=== PATIENT | female | born 1960 | race Caucasian/White ===

== ENCOUNTER 2018-04-25 00:13 | Emergency (ER) | payer SELFPAY ==
[2018-04-25] MEDS ORDERED: PROVENTIL IH ONE (00:51)
--- NOTE | 2018-04-25 01:27 | XRay Report ---
FINAL REPORT PROCEDURE: XR CHEST ROUTINE 2V TECHNIQUE: PA and lateral chest radiographs were obtained. CPT 18257 HISTORY: Shortness of breath COMPARISON: No prior studies are available for comparison. FINDINGS: Heart: Normal. Mediastinum/Vessels: Normal. Lungs/Pleural space: Normal. Bony thorax: No acute osseous abnormality. Other: IMPRESSION: Normal examination.
[2018-04-25 02:13] LABS: BUN/Creatinine Ratio 11; Blood Urea Nitrogen 12 mg/dL (7-17); Calcium 10.1 mg/dL (8.4-10.2); Hemolysis Index 15
[2018-04-25] MEDS ORDERED: NORCO 5/325 PO ONE (02:37)
[2018-04-25] MEDS ORDERED: DELTASONE PO ONE (02:37)
[2018-04-25] MEDS ORDERED: DUONEB *Not for PRN Use IH ONE (02:37)
[2018-04-25] MEDS ORDERED: MOTRIN PO ONE (02:37)
[2018-04-25 02:43] LABS: Basophils # (Auto) 0.1 K/mm3 (0.0-0.1); Basophils % (Auto) 0.8 % (0.0-1.8); Eosinophils # (Auto) 0.6 K/mm3 (0.0-0.4); Eosinophils % (Auto) 7.7 % (0.0-4.3); Hematocrit 36.4 % (30.3-42.9); Lymphocytes # (Auto) 2.6 K/mm3 (1.2-5.4); Lymphocytes % (Auto) 32.8 % (13.4-35.0); Mean Corpuscular HGB Conc 33 % (30-34); Mean Corpuscular Hemoglobin 28 pg (28-32); Mean Corpuscular Volume 85 fl (79-97); Monocytes # (Auto) 0.5 K/mm3 (0.0-0.8); Monocytes % (Auto) 5.7 % (0.0-7.3); Platelet Count 270 K/mm3 (140-440); Red Blood Count 4.28 M/mm3 (3.65-5.03); Red Cell Distribution Width 13.6 % (13.2-15.2)
[2018-04-25] MEDS ORDERED: HumuLIN R SUB-Q ONE (04:03)
--- NOTE | 2018-04-25 04:16 | Emergency Department Report ---
ED Shortness of Breath HPI - General Chief Complaint: Dyspnea/Respdistress Stated Complaint: WHEEZING/CHEST TIGHTEN Time Seen by Provider: 04/25/18 02:20 Source: patient Mode of arrival: Ambulatory Limitations: No Limitations - History of Present Illness Initial Comments: 58-year-old female with a past medical history previous CVA, mental health disorder, diabetes, and asthma presents to the hospital complains of shortness of breath 1 day. Positive wheezing and chest discomfort reported. Patient does not have any nebulizer inhaler treatment at home. She denies cough, fever , leg edema, or calf tenderness. Patient was wheezing upon arrival and received as prior to my evaluation. - Related Data Previous Rx's Medication Instructions Recorded Last Taken Type Albuterol Sulfate [Ventolin HFA] 2 puff IH Q4H PRN #1 hfa.aer.ad 04/25/18 Unknown Rx predniSONE [Deltasone] 40 mg PO QDAY 5 Days tab 04/25/18 Unknown Rx traMADol [Ultram 50 MG tab] 50 mg PO Q6HR PRN #14 tablet 04/25/18 Unknown Rx Allergies Allergy/AdvReac Type Severity Reaction Status Date / Time No Known Allergies Allergy Unverified 04/25/18 00:50 ED Review of Systems ROS: Stated complaint: WHEEZING/CHEST TIGHTEN Other details as noted in HPI Comment: All other systems reviewed and negative ED Past Medical Hx - Past Medical History Previous Medical History?: Yes Hx CVA: Yes Hx Diabetes: Yes Hx Asthma: Yes Additional medical history: MH, - Surgical History Past Surgical History?: Yes Additional Surgical History: c section, eye surgery, - Social History Smoking Status: Never Smoker Substance Use Type: None - Medications Home Medications: Home Medications Medication Instructions Recorded Confirmed Last Taken Type Albuterol Sulfate [Ventolin HFA] 2 puff IH Q4H PRN #1 hfa.aer.ad 04/25/18 Unknown Rx predniSONE [Deltasone] 40 mg PO QDAY 5 Days tab 04/25/18 Unknown Rx traMADol [Ultram 50 MG tab] 50 mg PO Q6HR PRN #14 tablet 04/25/18 Unknown Rx ED Physical Exam - General Limitations: No Limitations - Other Other exam information: General: No limitations, patient is alert in no acute distress Head exam: Atraumatic, normocephalic Eyes exam: Normal appearance ENT: Moist mucous membrane, normal oropharynx Neck exam: Normal inspection, full range of motion, no meningismus nontender Respiratory exam: Clear to auscultation, no wheezes, rales, crackles, no tachypnea or accessory muscle use. Auscultated after neb treatment Cardiovascular: Normal rate and rhythm, reproducible sternal chest wall tenderness Abdomen: Soft, nondistended, and nontender, with normal bowel sounds, no rebound, or guarding Extremity: Full range of motion normal inspection no deformity, no calf tenderness or edema Back: Normal Inspection, full range of motion, no tenderness Neurologic: Alert, oriented x3, cranial nerves intact, no motor or sensory deficit Psychiatric: normal affect, normal mood Skin: Warm, dry, intact ED Course Vital Signs 04/25/18 04/25/18 04/25/18 00:31 00:48 01:15 Temperature 99.0 F 99.4 F Pulse Rate 98 H 99 H Pulse Rate [ 88 Posterior Bilateral Throughout] Respiratory 16 20 Rate Respiratory 24 Rate [Posterior Bilateral Throughout] Blood Pressure 148/83 148/83 O2 Sat by Pulse 98 99 Oximetry 04/25/18 04/25/18 04/25/18 01:34 01:59 02:00 Temperature Pulse Rate 96 H 99 H Pulse Rate [ 102 H Posterior Bilateral Throughout] Respiratory 16 Rate Respiratory 20 Rate [Posterior Bilateral Throughout] Blood Pressure O2 Sat by Pulse 99 Oximetry 04/25/18 04/25/18 03:19 03:29 Temperature Pulse Rate Pulse Rate [ 95 H 100 H Posterior Bilateral Throughout] Respiratory Rate Respiratory 20 18 Rate [Posterior Bilateral Throughout] Blood Pressure O2 Sat by Pulse Oximetry ED Medical Decision Making - Lab Data Result diagrams: 04/25/18 01:21 04/25/18 01:21 Lab Results 04/25/18 04/25/18 Range/Units 01:21 01:21 WBC 7.9 (4.5-11.0) K/mm3 RBC 4.28 (3.65-5.03) M/mm3 Hgb 12.0 (10.1-14.3) gm/dl Hct 36.4 (30.3-42.9) % MCV 85 (79-97) fl MCH 28 (28-32) pg MCHC 33 (30-34) % RDW 13.6 (13.2-15.2) % Plt Count 270 (140-440) K/mm3 Lymph % (Auto) 32.8 (13.4-35.0) % [place] % (Auto) 5.7 (0.0-7.3) % Eos % (Auto) 7.7 H (0.0-4.3) % Baso % (Auto) 0.8 (0.0-1.8) % Lymph # 2.6 (1.2-5.4) K/mm3 [place] # 0.5 (0.0-0.8) K/mm3 Eos # 0.6 H (0.0-0.4) K/mm3 Baso # 0.1 (0.0-0.1) K/mm3 Seg Neutrophils % 53.0 (40.0-70.0) % Seg Neutrophils # 4.2 (1.8-7.7) K/mm3 Sodium 137 (137-145) mmol/L Potassium 4.5 (3.6-5.0) mmol/L Chloride 98.9 (98-107) mmol/L Carbon Dioxide 24 (22-30) mmol/L Anion Gap 19 mmol/L BUN 12 (7-17) mg/dL Creatinine 1.1 (0.7-1.2) mg/dL Estimated GFR 51 ml/min BUN/Creatinine Ratio 11 % Glucose 313 H (65-100) mg/dL Calcium 10.1 (8.4-10.2) mg/dL Troponin T < 0.010 (0.00-0.029) ng/mL - Radiology Data Radiology results: report reviewed FINAL REPORT PROCEDURE: XR CHEST ROUTINE 2V TECHNIQUE: PA and lateral chest radiographs were obtained. CPT 65731 HISTORY: Shortness of breath COMPARISON: No prior studies are available for comparison. FINDINGS: Heart: Normal. Mediastinum/Vessels: Normal. Lungs/Pleural space: Normal. Bony thorax: No acute osseous abnormality. Other: IMPRESSION: Normal examination. - Medical Decision Making Patient presented with wheezing improved with nebs in the ED. Patient also received prednisone. Patient also received Motrin and [place] for chest pain. Glucose was elevated. Subcutaneous insulin given No signs of DKA pt will be d/[facility] meds for asthma exacerbation - Differential Diagnosis asthma, bronchitis, CHF, pneumonia Critical Care Time: No Critical care attestation.: If time is entered above; I have spent that time in minutes in the direct care of this critically ill patient, excluding procedure time. ED Disposition Clinical Impression: Asthma exacerbation, Diabetes Disposition: DC-01 TO HOME OR SELFCARE Is pt being admited?: No Does the pt Need Aspirin: No Condition: Stable Instructions: Asthma (ED), Diabetes Mellitus Type 2 in Adults (ED) Additional Instructions: Take the medication as prescribed. Follow up with your doctor or the doctor/ clinic provided. Return if symptoms worsen as indicated by your discharge instructions. Please note while taking prednisone your glucose might be higher than normal. You may need additional diabetes medication doses during this time. Prescriptions: Albuterol Sulfate [Ventolin HFA] 2 puff IH Q4H PRN #1 hfa.aer.ad PRN Reason: Shortness Of Breath predniSONE [Deltasone] 40 mg PO QDAY 5 Days tab traMADol [Ultram 50 MG tab] 50 mg PO Q6HR PRN #14 tablet PRN Reason: Pain Referrals: PRIMARY CAREMD [Primary Care Provider] - 3-5 Days [facility] [Provider Group] - 3-5 Days AMAN JORDAN MD [Staff Physician] - 3-5 Days Time of Disposition: 04:42
[2018-04-25 04:59] VITALS: BP 137/69
== END 2018-04-25 04:59 | disposition home or self-care (01) ==
LOC: ED 00:13
DX: J45.901 Unspecified asthma with (acute) exacerbation (principal); E11.9 Type 2 diabetes mellitus without complications; J45.909 Unspecified asthma, uncomplicated; Z86.73 Personal history of transient ischemic attack (TIA), and cerebral infarction without residual deficits; Z79.4 Long term (current) use of insulin
CPT/HCPCS: 36415; 71046; 80048; 82962; 84484; 85025; 93005; 93010; 94640; 96372; 99284; J7512; J1815